=== PATIENT | female | born 1980 | race Caucasian/White ===

== ENCOUNTER 2018-03-22 16:21 | Emergency (ER) | payer OTHER ==
[2018-03-22 18:12] LABS: BILIRUBIN,URINE NEGATIVE (NEG); CLARITY,URINE CLEAR; COLOR,URINE YELLOW; GLUCOSE,URINE NEGATIVE (NEG); NITRITE,URINE NEGATIVE (NEG); PROTEIN,URINE NEGATIVE (NEG-TRACE); UROBILINOGEN,URINE 0.2 mg/dL (0.2 mg/dL)
[2018-03-22] MEDS ORDERED: CONTRAST GIVEN. MC (18:15)
[2018-03-22 18:20] LABS: BACTERIA,URINE MOD /HPF (0-FEW); RBC,URINE 0 /HPF (0-2); SQUAMOUS EPITHELIAL CELL,UR FEW /LPF
[2018-03-22 18:30] LABS: NEG OBC UR NEG; POS OBC UR POS; U PREG PATIENT NEGATIVE (NEG)
[2018-03-22] MEDS: KETOROLAC 30 MG/ML INJ. IV (18:33)
[2018-03-22 18:40] LABS: ADD MAN DIFF? NO
[2018-03-22 18:42] LABS: BASO # 0.1 x10^3/uL (0.0-0.2); BASO % 1 % (0-3); EOS # 0.1 x10^3/uL (0.0-0.7); EOS % 2 % (0-3); HEMATOCRIT 38.8 % (36.0-47.0); HEMOGLOBIN 13.3 g/dL (12.0-15.5); LYMPH # 2.3 x10^3/uL (1.0-4.8); LYMPH % 37 % (24-48); MEAN CORPUSCULAR HEMOGLOBIN 30 pg (25-35); MEAN CORPUSCULAR HGB CONC 34 g/dL (31-37); MEAN CORPUSCULAR VOLUME 87 fL (79-100); MONO # 0.4 x10^3/uL (0.0-1.1); MONO % 7 % (0-9); NEUT # 3.4 x10^3uL (1.8-7.7); NEUT % 54 % (31-73); PLATELET COUNT 210 x10^3/uL (140-400); RED BLOOD COUNT 4.48 x10^6/uL (3.50-5.40); RED CELL DISTRIBUTION WIDTH 13.4 % (11.5-14.5); WHITE BLOOD COUNT 6.2 x10^3/uL (4.0-11.0)
[2018-03-22] MEDS: IOHEXOL 300 MG/ML 100ML VIAL. IV (19:10)
[2018-03-22] MEDS: ONDANSETRON PF 4 MG/2 ML VIAL. IV (19:22)
[2018-03-22] MEDS: fentaNYL PF VIAL 100 MCG/2 ML VIAL IV (19:23)
[2018-03-22 19:57] LABS: ANION GAP 7 (6-14); BLOOD UREA NITROGEN 6 mg/dL (7-20); BUN/CREATININE RATIO 9 (6-20); CALCIUM 8.7 mg/dL (8.5-10.1); CARBON DIOXIDE 26 mmol/L (21-32); CHLORIDE 103 mmol/L (98-107); CREATININE 0.7 mg/dL (0.6-1.0); GFR 95.2; GLUCOSE 77 mg/dL (70-99); POTASSIUM 3.5 mmol/L (3.5-5.1); SODIUM 136 mmol/L (136-145)
[2018-03-22 20:01] LABS: ALBUMIN 3.8 g/dL (3.4-5.0); ALBUMIN/GLOBULIN RATIO 1.1 (1.0-1.7); ALK PHOS 52 U/L (46-116); ALT (SGPT) 19 U/L (14-59); AST (SGOT) 15 U/L (15-37); LIPASE 182 U/L (73-393); TOTAL BILIRUBIN 0.7 mg/dL (0.2-1.0); TOTAL PROTEIN 7.4 g/dL (6.4-8.2)
[2018-03-22] MEDS ORDERED: IOHEXOL 300 MG/ML 100ML VIAL. (22:17)
== END 2018-03-22 20:41 | disposition home or self-care (01) ==
LOC: ER 16:21
DX: R10.84 Generalized abdominal pain (principal); K59.00 Constipation, unspecified
CPT/HCPCS: 36415; 74177; 76856; 80053; 81001; 81025; 83690; 85025; 96374; 96375; 99285-25; J1885; J2405; J3010; Q9967

== ENCOUNTER 2018-04-21 06:04 | Observation (INO) | payer OTHER ==
[~2018-04-21 06:04] MED LIST: ESTROGENS, CONJ VAGINAL CREAM 30GM TUBE.; METHYLENE BLUE 1% 10 ML VIAL.; SURGICEL HEMOSTAT 4X8 EACH.
[2018-04-21] MEDS: IV RINGERS,LACTATED 1000ML 1,000 ML IV (06:34)
[2018-04-21 06:56] LABS: ADD MAN DIFF? NO
[2018-04-21 06:57] LABS: BASO # 0.1 x10^3/uL (0.0-0.2); BASO % 1 % (0-3); EOS # 0.1 x10^3/uL (0.0-0.7); EOS % 3 % (0-3); HEMATOCRIT 38.7 % (36.0-47.0); HEMOGLOBIN 13.5 g/dL (12.0-15.5); LYMPH % 39 % (24-48); MEAN CORPUSCULAR HEMOGLOBIN 31 pg (25-35); MEAN CORPUSCULAR HGB CONC 35 g/dL (31-37); MEAN CORPUSCULAR VOLUME 87 fL (79-100); MONO # 0.4 x10^3/uL (0.0-1.1); MONO % 8 % (0-9); NEUT # 2.5 x10^3uL (1.8-7.7); NEUT % 49 % (31-73); PLATELET COUNT 200 x10^3/uL (140-400); RED BLOOD COUNT 4.44 x10^6/uL (3.50-5.40); RED CELL DISTRIBUTION WIDTH 13.2 % (11.5-14.5); WHITE BLOOD COUNT 5.1 x10^3/uL (4.0-11.0)
[2018-04-21] MEDS ORDERED: LIDOCAINE 1% PF 2 ML VIAL. ID (07:00)
[2018-04-21] MEDS ORDERED: ONDANSETRON PF 4 MG/2 ML VIAL. IV ×2 (07:00→09:45)
[2018-04-21] MEDS ORDERED: fentaNYL PF VIAL 100 MCG/2 ML VIAL IV (07:00)
[2018-04-21] MEDS: LIDOCAINE 1%/EPI 1:100,000 20 ML VIAL. INJ (07:00)
[2018-04-21] MEDS ORDERED: KETOROLAC 30 MG/ML INJ FOR OR. INJ (07:41)
[2018-04-21] MEDS ORDERED: LIDOCAINE 2% PF Vial for OR 5 ML VIAL. (07:41)
[2018-04-21] MEDS ORDERED: PROPOFOL 20 ML IV ×2 (07:41→07:42)
[2018-04-21] MEDS ORDERED: FAMOTIDINE 20 MG/2 ML VIAL (07:41)
[2018-04-21] MEDS ORDERED: ONDANSETRON PF 4 MG/2 ML VIAL. (07:41)
[2018-04-21] MEDS ORDERED: diphenhydrAMINE 50 MG/ML VIAL (07:41)
[2018-04-21] MEDS ORDERED: DEXAMETHASONE SOD PHOS 20 MG/5 ML VIAL. (07:41)
[2018-04-21] MEDS ORDERED: MIDAZOLAM HCL/PF 2 MG/2 ML VIAL. (07:42)
[2018-04-21] MEDS ORDERED: fentaNYL PF VIAL 100 MCG/2 ML VIAL ×4 (07:42→10:10)
[2018-04-21] MEDS ORDERED: ROCURONIUM 50 MG/5 ML VIAL. ×2 (07:42→08:53)
[2018-04-21] MEDS ORDERED: ceFAZolin 2GM PREMIX 2 GM/50 ML BAG IV (08:00)
[2018-04-21] MEDS: BUPIVACAINE-EPI 0.25%-1:200000 50 ML VIAL. (08:16)
[2018-04-21] MEDS ORDERED: BUPIVACAINE-EPI 0.25%-1:200000 50 ML VIAL. (08:28)
[2018-04-21] MEDS ORDERED: SEVOFLURANE > 120 MINUTES. IH (09:22)
[2018-04-21] MEDS ORDERED: GLYCOPYRROLATE 1 MG/5 ML VIAL. (09:22)
[2018-04-21] MEDS ORDERED: NEOSTIGMINE METHYLSULFATE 5 MG/5 ML SYRINGE. (09:22)
[2018-04-21 09:30] LABS: NEG OBC UR NEG; POS OBC UR POS; U PREG PATIENT NEGATIVE (NEG)
[2018-04-21] MEDS ORDERED: PROCHLORPERAZINE 10 MG/2 ML VIAL. (09:36)
[2018-04-21] MEDS ORDERED: DEXTROSE 50% 25 GM / 50ML DISP.SYRIN. IV (09:45)
[2018-04-21] MEDS ORDERED: diphenhydrAMINE 50 MG/ML VIAL IV (09:45)
[2018-04-21] MEDS ORDERED: 0.9 % SODIUM CHLORIDE 10 ML DISP.SYRIN. IV (09:45)
[2018-04-21] MEDS ORDERED: PROCHLORPERAZINE 10 MG/2 ML VIAL. IV (09:45)
[2018-04-21] MEDS ORDERED: diphenhydrAMINE HCL 25 MG CAPSULE PO (09:45)
[2018-04-21] MEDS ORDERED: ZOLPIDEM 5 MG TABLET. PO (09:45)
[2018-04-21] MEDS: PROCHLORPERAZINE 10 MG/2 ML VIAL. IV (09:46)
[2018-04-21] MEDS: fentaNYL PF VIAL 100 MCG/2 ML VIAL IV ×4 (09:46→11:18)
[2018-04-21] MEDS ORDERED: MORPHINE SULFATE 2 MG/ML DISP.SYRIN. (09:57)
[2018-04-21] MEDS ORDERED: MEPERIDINE PF 25 MG/ML VIAL. (09:59)
[2018-04-21] MEDS: MORPHINE SULFATE 2 MG/ML DISP.SYRIN. IV ×2 (10:01→10:12)
[2018-04-21] MEDS: MEPERIDINE PF 25 MG/ML VIAL. IV ×2 (10:12→10:26)
[2018-04-21] MEDS: KETOROLAC 30 MG/ML INJ. IV ×2 (12:03→20:11)
[2018-04-21] MEDS: oxyCODONE/APAP 5/325 1 TAB TABLET PO ×3 (12:04→21:28)
[2018-04-21] MEDS: CALCIUM CARBONATE 500 MG TAB.CHEW PO (16:46)
[2018-04-21] MEDS: SIMETHICONE 80 MG TAB.CHEW PO (16:46)
[2018-04-21] MEDS: GABAPENTIN 300 MG CAPSULE. PO ×2 (16:46→22:44)
[2018-04-22] MEDS: oxyCODONE/APAP 5/325 1 TAB TABLET PO ×4 (02:51→16:20)
[2018-04-22] MEDS: LORazepam 1 MG TABLET PO ×2 (08:10→16:20)
[2018-04-22] MEDS: GABAPENTIN 300 MG CAPSULE. PO ×2 (08:10→14:03)
[2018-04-22] MEDS: ONDANSETRON ODT 4 MG TAB.RAPDIS. PO (08:12)
[2018-04-22 10:22] LABS: ADD MAN DIFF? NO
[2018-04-22 10:32] LABS: BASO % 0 % (0-3); EOS # 0.1 x10^3/uL (0.0-0.7); EOS % 1 % (0-3); HEMATOCRIT 34.4 % (36.0-47.0); HEMOGLOBIN 11.7 g/dL (12.0-15.5); LYMPH # 1.1 x10^3/uL (1.0-4.8); LYMPH % 17 % (24-48); MEAN CORPUSCULAR HEMOGLOBIN 30 pg (25-35); MEAN CORPUSCULAR HGB CONC 34 g/dL (31-37); MEAN CORPUSCULAR VOLUME 88 fL (79-100); MONO # 0.3 x10^3/uL (0.0-1.1); MONO % 5 % (0-9); NEUT % 76 % (31-73); PLATELET COUNT 131 x10^3/uL (140-400); RED BLOOD COUNT 3.89 x10^6/uL (3.50-5.40); RED CELL DISTRIBUTION WIDTH 13.4 % (11.5-14.5); WHITE BLOOD COUNT 6.6 x10^3/uL (4.0-11.0)
== END 2018-04-22 16:35 | disposition home or self-care (01) ==
LOC: SURG 06:04 → 3 NORTH 11:57
DX: N83.12 Corpus luteum cyst of left ovary (principal); G89.29 Other chronic pain; F41.9 Anxiety disorder, unspecified; N80.0 Endometriosis of uterus
CPT/HCPCS: 36415; 81025; 85025; 86850; 86900; 86901; 96374; 96376; A7015; G0378; G0379; J0690; J0780; J1100; J1200; J1885; J2001; J2175; J2250; J2270; J2405; J2704; J2710; J3010; J3490; J7030; J7120; Q0162; Q9968; S0028